=== PATIENT | male | born 1995 | race Caucasian/White ===

== ENCOUNTER 2019-06-24 13:46 | Emergency (ER) | payer OTHER, SELFPAY ==
--- NOTE | ~2019-06-24 | XR_ITS ---
EXAMINATION: XR foot LT min 3V EXAM DATE: 06/24/2019 14:20 INDICATION: Initial encounter following injury, with pain of the left foot. TECHNIQUE: Left foot dorsoplantar, lateral and oblique projections obtained and reviewed. There is n o prior study for comparison. FINDINGS: There is subtle lucency at the base of the left fifth metatarsal bone, probable acute nond isplaced closed posttraumatic fracture. No other suspicious findings. IMPRESSION: Probable acute nondisplaced left fifth metatarsal base fracture. Reviewed, dictated and finalized at location A. [employer]CHO[employer]
--- NOTE | 2019-06-24 13:52 | ED.GENADULT ---
HPI - General Adult General Chief complaint: Extremity Injury, Lower Stated complaint: Left Foot Pain Time Seen by Provider: 06/24/19 13:52 Source: patient Mode of arrival: ambulatory Limitations: no limitations History of Present Illness HPI narrative: 24-year-old male patient presents to the [facility] with complaints of left foot pain. Patient states that he was at a bar last night and had his foot on the railing of a barstool and states that he fell off of a barstool and when he did his foot got caught underneath the barstool. Patient states that he did ice it last night as well as take some ibuprofen yesterday and today. Patient states he has not been able to ambulate or bear weight onto the left foot. Patient denies any numbness and tingling to the toes but does have problems wiggling the pinky toe. Related Data Home Medications Medication Instructions Recorded Confirmed No Home Medications 06/24/19 06/24/19 Allergies Allergy/AdvReac Type Severity Reaction Status Date / Time No Known Allergies Allergy Unverified 12/02/18 18:06 Review of Systems Review of Systems: Narrative: CONSTITUTIONAL: Denies fever, chills, or sweats. EYES: Denies visual changes, redness, or discharge. ENT: Denies rhinorrhea, congestion, sore throat, or otalgia. CARDIOVASCULAR: Denies chest pain, palpitations, or edema. RESPIRATORY: Denies cough or dyspnea. GASTROINTESTINAL: Denies abdominal pain, nausea, vomiting, or diarrhea. GENITOURINARY: Denies dysuria or hematuria. SKIN: Denies rash or itching. MUSCULOSKELETAL: Denies back pain, joint pain, or myalgia. Positive left foot pain NEUROLOGIC: Denies headache, numbness, or weakness. PSYCHIATRIC: Denies anxiety or depression. PMFSH Social History Social History Gender identity (if verbalized by the patient): Male Comments At the time of my signature I agree with nursing past medical history, surgical, social, and family history. There is no relevant family history pertinent to the presenting complaint. Exam Narrative: Exam Narrative: GENERAL: Well-appearing, well-nourished, and in no acute distress. HEAD: Normocephalic, atraumatic. EYES: PERRLA and EOMI. ENT: Nares clear, no rhinorrhea or epistaxis. Mucous membranes moist. NECK: Supple. No lymphadenopathy CHEST: Clear to auscultation. No respiratory distress. HEART: Regular rate and rhythm. No murmur heard. Normal peripheral pulses. ABDOMEN: Soft, nontender, nondistended, normal active bowel sounds. EXTREMITIES: Patient unable to bear weight and ambulate without pain to left foot. Patient has bruising and ecchymosis noted to the lateral side of the left foot. No lesions, ulcers or break in skin integrity. The L foot is without obvious asymmetry or deformity when compared to the R foot. No bony step-off, tender to palpation over the fifth metatarsal, no midfoot or hindfoot or sole. Decrease in plantar/dorsiflexion, normal inversion/eversion. Distal motor and neurovascular status are intact SKIN: Warm, dry, no rash. NEURO: No focal deficits. Alert and oriented x3. Course Reevaluation(s) Reevaluation #1: Notify patient that the x-ray report is suggesting that he might have a fracture to the base of the fifth metatarsal. Discussed with him that our plan of care today is to go ahead and put him in an Ortho shoe provide him some crutches and I am going to take him off work until he follows up either with the Ortho doctor or with his primary care doctor. We will go ahead and refer him to the Ortho doctor today. He will need to call make an appointment. Patient verbalized understanding denies any other questions or concerns at this time. A copy of the x-ray results along with the CD was provided to the patient today. Date: 06/24/19 Time: 14:49 Vital Signs Vital signs: Vital Signs Temperature 36.8 C 06/24/19 14:00 Pulse Rate 107 H 06/24/19 14:00 Blood Pressure 124/83 06/24
[2019-06-24 14:00] VITALS: BP 124/83; PULSE 107; TEMP 36.8; O2SAT 100
== END 2019-06-24 14:52 | disposition home or self-care (01) ==
PROVIDERS: Emergency Provider Nurse Practitioner Family; PCP Family Medicine Adolescent Medicine
DX: S92.355A Nondisplaced fracture of fifth metatarsal bone, left foot, initial encounter for closed fracture (principal); W08.XXXA Fall from other furniture, initial encounter
CPT/HCPCS: 73630; 99213; G0463

== ENCOUNTER 2019-08-07 09:00 | Outpatient (RCR) | payer OTHER, SELFPAY ==
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
--- NOTE | 2019-06-24 13:05 | PCPTNOTE ---
Patient called & cancelled scheduled appointment this date due to [ ]going to hospital thinks he broke his foot.
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
--- NOTE | 2019-07-29 09:10 | PCPTNOTE ---
Patient called & cancelled scheduled appointment this date due to [ illness.]
--- NOTE | 2019-08-05 09:24 | PCPTNOTE ---
pt came in temp was taken 100.0 . Appt was canceled
--- NOTE | 2019-08-07 09:42 | PCPTNOTE ---
Pt no show no call for today's appointment. Patient was called yesterday and stated he would be able to make his appointment.
--- NOTE | 2019-08-15 09:56 | PCPTNOTE ---
Patient called & cancelled scheduled appointment his appointment on 08/12/19, then did not show for scheduled appt on 08/15/19. Will plan to DC pt due to repeated NS/Cx of appt.
--- NOTE | 2019-08-15 09:59 | PCPTNOTE ---
Admitting Provider: Attending Provider: Peter Loja MD Patient:Edison Cervantes Date of :1995 Patient has not returned for any further treatments since 07/30/2019, therefore he will be discharged from therapy at this time. He was seen for 5 visits from 06/13/19-08/15/19 with 6 no show/ cancelled appointments. The goals have been partially achieved. Thank you for referring this patient to [facility]. Please review, sign, date and return this discharge summary SHEYLA. I have been updated about the patient's current status and I agree with discharge from the above service at this time. Referring Physician Date
== END 2019-08-18 11:10 | disposition home or self-care (01) ==
LOC: ANHPT 09:00
PROVIDERS: PCP Family Medicine Adolescent Medicine; Visit Provider Family Medicine Adolescent Medicine
DX: M54.2 Cervicalgia (principal); M54.12 Radiculopathy, cervical region
CPT/HCPCS: 97110; 97140; 97162

== ENCOUNTER 2019-10-20 10:11 | Emergency (ER) | payer OTHER, SELFPAY ==
--- NOTE | 2019-10-20 10:21 | ED.EYEPROB ---
HPI - Eye Problem General Chief complaint: Eye Problems Stated complaint: redness/swollen eye lid Time Seen by Provider: 10/20/19 10:21 Source: patient and RN notes reviewed History of Present Illness HPI Narrative: Patient is a 24-year-old male that presents the urgent care with complaints of a stye to the right eye. Patient states that he noticed it as of Sunday and has been using a stye compress to the right eye periodically. 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 Patient states that he woke up this morning with increased swelling surrounding the right eye as well as redness and clear drainage. Patient states that he has a history of poor vision and is unable to use contacts, and is also not gotten a new set of glasses. Patient denies any known trauma or injury to the right eye. Denies any vision changes. No other acute complaints. No acute distress noted. Patient read the plan of care. Related Data Allergies Allergy/AdvReac Type Severity Reaction Status Date / Time No Known Allergies Allergy Verified 10/20/19 10:20 Review of Systems Review of Systems: Narrative: CONSTITUTIONAL: Denies fever, chills, or sweats. EYES: Reports of redness and swelling surrounding the right eye with a notable stye to the right upper eyelid ENT: Denies rhinorrhea, congestion, sore throat, or otalgia. CARDIOVASCULAR: Denies chest pain, palpitations, or edema. RESPIRATORY: Denies cough or dyspnea. GASTROINTESTINAL: Denies abdominal pain, nausea, vomiting, or diarrhea. GENITOURINARY: Denies dysuria or hematuria. SKIN: Denies rash or itching. MUSCULOSKELETAL: Denies back pain, joint pain, or myalgia. NEUROLOGIC: Denies headache, numbness, or weakness. All other systems reviewed are negative, except as documented in HPI. PMFSH Social History Social History Gender identity (if verbalized by the patient): Male Comments At the time of my signature, I reviewed and agree with the nursing past medical, surgical, social, and family history. There is no relevant family history pertinent to the patient complaint. Exam Narrative: Exam Narrative: GENERAL: This is a well-nourished, well-developed patient, in no apparent distress. HEAD: normocephalic, atraumatic. EYES: PERRL. Mild to moderate erythema and edema to right upper eyelid. Mild erythema and edema to right lower eyelid. Mild injected right conjunctivea to the right. Mild right eye surrounding erythema. Notable internal right upper eyelid hordeolum EARS: External ears normal NOSE: External nose normal with no obvious nasal discharge, nares without redness, no rhinorrhea. THROAT: Mucous membranes moist NECK: Neck supple SKIN: warm, intact with no suspicious lesions or rash, good texture and turgor. NEURO: awake, alert, and oriented to person, place and time. There were no obvious focal neurologic abnormalities. EXTREMITIES: No clubbing, cyanosis, or edema. Course Vital Signs Vital signs: Vital Signs Temperature 97.8 F 10/20/19 10:23 Pulse Rate 82 10/20/19 10:23 Respiratory Rate 16 10/20/19 10:23 Blood Pressure 142/82 H 10/20/19 10:23 Pulse Oximetry 100 10/20/19 10:23 Temperature 97.8 F 10/20/19 10:23 Pulse Rate 82 10/20/19 10:23 Respiratory Rate 16 10/20/19 10:23 Blood Pressure 142/82 H 10/20/19 10:23 Pulse Oximetry 100 10/20/19 10:23 Reviewed?patient is informed that they may have pre-hypertension or hypertension based on a blood pressure reading in the department. I recommend the patient call the primary care provider listed on their discharge instructions or a physician of their choice this week to arrange follow-up for further evaluation of possible pre-hypertension or hypertension. MDM - Eye Problem MDM Narrative Medical decision making narrative: Advised the patient to use prescription
[2019-10-20 10:23] VITALS: BP 142/82; PULSE 82; RESP 16; TEMP 36.6; O2SAT 100
== END 2019-10-20 10:46 | disposition home or self-care (01) ==
PROVIDERS: Emergency Provider Nurse Practitioner Family; PCP Family Medicine Adolescent Medicine
DX: H00.021 Hordeolum internum right upper eyelid (principal)
CPT/HCPCS: 99213; G0463

== ENCOUNTER 2020-04-12 11:23 | Emergency (ER) | payer OTHER, SELFPAY ==
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
[2020-04-12 11:32] VITALS: BP 132/86; PULSE 88; RESP 16; TEMP 36.9; O2SAT 99
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
== END 2020-04-12 12:23 | disposition home or self-care (01) ==
PROVIDERS: Emergency Provider Nurse Practitioner Family; PCP Family Medicine Adolescent Medicine
DX: S90.32XA Contusion of left foot, initial encounter (principal); W20.8XXA Other cause of strike by thrown, projected or falling object, initial encounter; S93.602A Unspecified sprain of left foot, initial encounter
CPT/HCPCS: 73610; 73630; 99213; G0463

== ENCOUNTER 2024-01-13 19:04 | Emergency (ER) | payer OTHER, SELFPAY ==
[2024-01-13 19:32] VITALS: BP 154/98; PULSE 92; RESP 18; TEMP 37.1; O2SAT 98
== END 2024-01-13 23:03 | disposition left against medical advice (07) ==
LOC: ANHED 22:23
PROVIDERS: Emergency Provider Emergency Medicine; PCP Family Medicine Adolescent Medicine
DX: R11.2 Nausea with vomiting, unspecified (principal)
CPT/HCPCS: 99199